=== PATIENT | female | born 1980 | race Caucasian/White ===

== ENCOUNTER 2022-12-08 08:39 | Outpatient (CLI) | payer SELFPAY ==
[2022-12-08 12:55] LABS: Cholesterol* 211 mg/dL (90-199); Glucose* 113 mg/dL (60-115); HDL Cholesterol* 49 mg/dL (>=50); LDL Cholesterol Calculated 140 mg/dL (<100); Triglycerides* 110 mg/dL (40-149)
== END 2022-12-08 08:40 | disposition home or self-care (01) ==
LOC: NFLDREF 08:39
PROVIDERS: PCP Family Medicine; Visit Provider Family Medicine
DX: Z00.00 Encounter for general adult medical examination without abnormal findings (principal); Z13.1 Encounter for screening for diabetes mellitus; Z13.6 Encounter for screening for cardiovascular disorders
CPT/HCPCS: 80061; 82947

== ENCOUNTER 2023-12-20 09:02 | Outpatient (CLI) | payer OTHER, SELFPAY ==
--- OUTSIDE RECORDS SUMMARY | 2023-12-20 09:06 | XMS_ITS | Clinical Summary ---
Author Name Unknown Organization [facility] Address [address] [address] Phone Care Team Providers Care Box Hinge And Lock Attacher Name Role Phone Unavailable Primary Care Provider Unavailabl e Medications Medication Sig Dispensed Refills Start Date End Date Status Adderall XR 20 MG 24 hour capsule 0 10/20/2021 Active escitalopram (Lexapro) 20 MG tablet 0 09/22/2021 Active HYDROcodone-acetam inophen ([place]) 5-325 MG oral tablet Take 1 Tablet by mouth every six hours as needed for Pain . Limit acetaminophen to 4000 mg per day from all sources. 12 Tablet 0 10/25/2021 Active Active Problems No known active problems Social History Tobacco Use Types Packs/Day Years Used Date Smoking Tobacco: Never Smokeless Tobacco: Never Sex and Gender Information Value Date Recorded Sex Assigned at Not on file Gender Identity Not on file Sexual Orientation Not on file Job Start Date Occupation Industry Not on file Not on file Not on file Obstetrics History Last Filed Vital Signs Vital Sign Reading Time Taken Comments Blood Pressure 148/93 10/25/2021 3:05 PM ELECTRICAL SYSTEMS DRAFTER Pulse 87 10/25/2021 3:03 PM ELECTRICAL SYSTEMS DRAFTER Temperature 36.9 ??C (98.4 ??F) 10/25/2021 3:03 PM CS T Respiratory Rate 14 10/25/2021 3:03 PM ELECTRICAL SYSTEMS DRAFTER Oxygen Saturation 100% 10/25/2021 3:03 PM ELECTRICAL SYSTEMS DRAFTER Inhaled Oxygen Concentration - - Weight - - Height - - Body Mass Index - - Plan of Treatment Health Maintenance Due Date Last Done Comments Cervical Cancer Screening 1980 Hepatitis B Vaccine (Standin g Order) (1 of 3 - 3-dose series) 1979 Last pap w/ HPV Testing 1979 Last pap w/o HPV Testing 1979 MAMMO,SCREEN 1979 COVID-19 Vaccine (#1) 04/17/1980 PERTUSSIS (Standing Order) 1998 TETANUS (Standing Order) 1998 Influenza Vaccine Seasonal (Standing Order) (#1) 2023 HPV Vaccine (Standing Order) Aged Out No longer eligible based on patient's age to complete this topic Pneumococcal/PCV20 Vaccine: Pediatrics (2-5 yrs) and At-Risk Patients (6-64 yrs) (Standing Order) Aged Out No longer eligible b ased on patient's age to complete this topic
== END 2023-12-20 09:03 | disposition home or self-care (01) ==
PROVIDERS: PCP Family Medicine; Visit Provider Family Medicine
DX: Z13.220 Encounter for screening for lipoid disorders (principal); Z13.1 Encounter for screening for diabetes mellitus
CPT/HCPCS: 80061; 82947

== ENCOUNTER 2024-02-28 13:00 | Outpatient (CLI) | payer OTHER, SELFPAY ==
--- NOTE | 2024-02-28 13:00 | MM_ITS ---
Patient: TEODORO QUIGLEY Facility:?[facility] R[facility] Patient ID:?[id number] Site Patient ID:?[id number]. Site :?1980 Study:?XRay-Breast Bilateral 3D screening mammogram w/cad-02/28/2024 1:34:22 PM Ordering Physician:Margarita Final Report: BILATERAL DIGITAL SCREENING MAMMOGRAM WITH TOMOSYNTHESIS AND COMPUTER-AIDED DETECTION CLINICAL HISTORY: Routine screening exam. COMPARISON: 09/02/2020. TECHNIQUE: Digital mammogram in CC and MLO projections including computer-aided detection (CAD). Tomosynthesis utilized. BREAST COMPOSITION: The breasts are heterogeneously dense, which may obscure small masses. FINDINGS: RIGHT Breast: No suspicious findings. LEFT Breast: Focal nodular density within the lower outer quadrant 6 cm from the nipple. IMPRESSION: LEFT breast asymmetry/mass. RECOMMENDATIONS: Additional mammographic views of the LEFT breast including 3D spot compression CC/MLO. LEFT breast ultrasound may also be required. BI-RADS Category 0: Incomplete: Need Additional Imaging Evaluation and/or Prior Mammograms for Comparison [facility] will contact the patient for follow-up. A lay language report of this examination will be provided to the patient. Dictated by Emerson Jacobs MD @ 02/29/2024 11:06:25 AM jj/Dictated by: Emerson Jacobs MD @ 02/29/2024 11:06:00 AM Signed by:?Emerson Jacobs MD @02/29/2024 12:07:10 PM (Electronic Signature)
--- OUTSIDE RECORDS SUMMARY | 2024-02-28 13:03 | XMS_ITS | Clinical Summary ---
Author Name Unknown Organization [facility] Address [address] [address] Phone Care Team Providers Care Lumber Mover Name Role Phone Unavailable Primary Care Provider Unavailabl e Medications Medication Sig Dispensed Refills Start Date End Date Status Adderall XR 20 MG 24 hour capsule 10/20/2021 Active escitalopram (Lexapro) 20 MG tablet 09/22/2021 Active HYDROcodone-acetam inophen ([place]) 5-325 MG oral tablet Take 1 Tablet by mouth every six hours as needed for Pain . Limit acetaminophen to 4000 mg per day from all sources. 12 Tablet 10/25/2021 Active Active Problems No known active [...] Comments Blood Pressure 148/93 10/25/2021 3:05 PM RATE AND COST ANALYST Pulse 87 10/25/2021 3:03 PM RATE AND COST ANALYST Temperature 36.9 ??C (98.4 ??F) 10/25/2021 3:03 PM CS T Respiratory Rate 14 10/25/2021 3:03 PM RATE AND COST ANALYST Oxygen Saturation 100% 10/25/2021 3:03 PM RATE AND COST ANALYST Inhaled Oxygen Concentration - - Weight - - Height - - Body Mass Index - - Plan of Treatment Health Maintenance Due Date Last Done Comments Cervical Cancer Screening 1979 Last pap w/ HPV Testing 1979 Last pap w/o HPV Testing 1979 MAMMO,SCREEN 1979 Hepatitis B Vaccine (Standin g Order) (1 of 3 - 19+ 3-dose series) 1998 PERTUSSIS (Standing Order) 1998 TETANUS (Standing Order) 1998 COVID-19 Vaccine (2022-2 4 season) 2023 Influenza Vaccine Seasonal (Standing Order) (#1) 2023 HPV Vaccine (Standing Order) Aged Out No longer eligible based on patient's age to complete this topic Pneumococcal/PCV20 Vaccine: Pediatrics (2-5 yrs) and At-Risk Patients (6-64 yrs) (Standing Order) Aged Out No longer eligible b ased on patient's age to complete this topic
== END 2024-02-28 13:01 | disposition home or self-care (01) ==
LOC: MAMMO 13:00
PROVIDERS: PCP Family Medicine; Visit Provider Family Medicine
DX: Z12.31 Encounter for screening mammogram for malignant neoplasm of breast (principal); N63.20 Unspecified lump in the left breast, unspecified quadrant; R92.2 Inconclusive mammogram
CPT/HCPCS: 77063; 77067

== ENCOUNTER 2024-03-14 08:35 | Outpatient (CLI) | payer OTHER, SELFPAY ==
--- OUTSIDE RECORDS SUMMARY | 2024-03-14 08:40 | XMS_ITS | Clinical Summary ---
Author Name Unknown Organization [facility] Address [address] [address] Phone Care Team Providers Care Computer Forensics Investigator Name Role Phone Unavailable Primary Care Provider Unavailabl e Medications Medication Sig Dispensed Refills Start Date End Date Status Adderall XR 20 MG 24 hour capsule 10/20/2021 Active escitalopram (Lexapro) 20 MG tablet 09/22/2021 Active HYDROcodone-acetam inophen ([place]) 5-325 MG oral tablet Take 1 Tablet [...] Comments Blood Pressure 148/93 10/25/2021 3:05 PM CONVEYOR MONITOR Pulse 87 10/25/2021 3:03 PM CONVEYOR MONITOR Temperature 36.9 ??C (98.4 ??F) 10/25/2021 3:03 PM CS T Respiratory Rate 14 10/25/2021 3:03 PM CONVEYOR MONITOR Oxygen Saturation 100% 10/25/2021 3:03 PM CONVEYOR MONITOR Inhaled Oxygen Concentration - - Weight - [...]
--- NOTE | 2024-03-14 08:45 | MM_ITS ---
Patient: TEODORO QUIGLEY Facility:?[facility] Patient ID:?[id number] Site Patient ID:?[id number] Site :?1980 Study:?XRay-Breast Left 3D W/CAD-03/14/2024 9:20:53 AM Ordering Physician:?Moe Cyr Final Report: DIGITAL DIAGNOSTIC LEFT MAMMOGRAM USING TOMOSYNTHESIS AND COMPUTER-AIDED DETECTION LEFT BREAST ULTRASOUND CLINICAL HISTORY: LEFT breast mass/asymmetry. COMPARISON: 02/28/2024. TECHNIQUE: Digital LEFT mammogram in two projections. Tomosynthesis and CAD utilized. Real-time ultrasound imaging of LEFT breast with imaging documentation. BREAST COMPOSITION: There are areas of scattered fibroglandular density. FINDINGS: 3D spot compression CC/MLO LEFT breast mammogram images submitted. Persistent nodular density is present without architectural distortion. No suspicious calcifications. Targeted LEFT breast ultrasound performed. At 4 o`clock 5 cm from the nipple there is a circumscribed solid hypoechoic nodule measuring 11 x 5 x 8 millimeters at mid depth. IMPRESSION: Indeterminate solid nodule LEFT breast 4 o`clock 5 cm from the nipple measuring 11 x 5 x 8 millimeters. RECOMMENDATIONS: Ultrasound-guided core needle biopsy. Results and recommendations discussed with the patient. BI-RADS Category 4: Suspicious A lay language report of this examination will be provided to the patient. Dictated by Emerson Jacobs MD @ 03/14/2024 11:05:11 AM jj/Dictated by: Emerson Jacobs MD @ 03/14/2024 11:05:00 AM Signed by:?Emerson Jacobs MD @03/14/2024 11:57:39 AM (Electronic Signature)
--- NOTE | 2024-03-14 09:15 | US_ITS ---
Patient: TEODORO QUIGLEY Facility:?[facility] RIS Patient ID:?[id number] Site Patient ID:?[id number] Site :?1980 Study:?US-Breast Left DR LI TO READ-03/14/2024 9:24:29 AM Ordering Physician:?DEBBIE DARDEN Final Report: PLEASE SEE DIGITAL DIAGNOSTIC LEFT MAMMOGRAM PERFORMED SAME DAY CRL:rodney stevens/Dictated by: Emerson Li MD @ 03/14/2024 11:05:00 AM Signed by:?Emerson Li MD @03/14/2024 11:57:40 AM (Electronic Signature)
--- NOTE | 2024-03-14 11:15 | US_ITS ---
Patient: TEODORO QUIGLEY Facility:?[facility] Patient ID:?[id number] Site Patient ID:?[id number] Site :?1980 Study:?US-Breast Procedure DR LI TO READ-03/14/2024 11:35:57 AM Ordering Physician:?DEBBIE DARDEN Final Report: ULTRASOUND-GUIDED LEFT BREAST BIOPSY AND POST-BIOPSY DIGITAL MAMMOGRAM FOR BIOPSY MARKER PLACEMENT CLINICAL HISTORY: Indeterminate nodule. COMPARISON STUDIES: 03/14/24, 02/28/2024 TECHNIQUE: Real-time ultrasound with image documentation was used for targeting the LEFT breast lesion. Core biopsy specimens were obtained using an automated gun with an 18-gauge biopsy needle. Post-biopsy CC and ML digital mammograms were obtained to document position of the biopsy marker. CONSENT and TIME OUT: The procedure, risks, and alternatives were explained to the patient and a consent was signed. [place] Protocol was followed including pre-procedure verification that relevant information/documentation was available, reviewed and properly matched to the patient; consent accurate and complete; and equipment and supplies available. Time Out was conducted just prior to starting procedure to verify the four required elements: patient identity, correct side/site marked (if applicable), procedure, relevant images/results properly labeled and displayed (if applicable). PROCEDURE: The patient was positioned supine on the ultrasound table. The breast was prepped with ChloraPrep. 8 cc of 1% lidocaine used for local anesthesia. Core samples were obtained. A sterile metal biopsy clip was placed percutaneously to simi the lesion position within the breast. The specimens were placed in 10% formalin and sent to the pathology department. Pressure was held on the biopsy site until all bleeding subsided. The skin incision was closed with Steri- Strips. An ice pack was positioned over the biopsy site. Post-biopsy instructions were reviewed with the patient, and a written copy was given to her. LATERALITY: LEFT breast. LESION: Solid circumscribed hypoechoic nodule measuring 11 x 5 x 8 mm at 4 o`clock, 5 cm from the nipple. SUSPICION FOR MALIGNANCY: Intermediate, probable fibroadenoma. NUMBER OF SAMPLES: 5 BIOPSY CLIP SHAPE: Oval-shaped PROXIMITY OF CLIP TO TARGET: Within target IMPRESSION: Ultrasound-guided LEFT breast biopsy. When the pathology report is available, an addendum to this report will be made. ACR not applicable Dictated by Emerson Li MD @ 03/14/2024 11:50:41 AM DIGNA:princess RD/Dictated by: Emerson Li MD @ 03/14/2024 11:50:00 AM --ADDENDUM-- ADDENDUM: Pathology consistent with benign fibroadenoma. No evidence of atypia or malignancy. This is concordant. Resume annual BILATERAL screening mammography. Dictated by: Emerson Li MD @03/16/2024 2:50:53 PM / Nelia Signed by:?Emerson Li MD @03/14/2024 12:32:23 PM (Electronic Signature)
--- NOTE | 2024-03-14 12:00 | MM_ITS ---
Patient: TEODORO QUIGLEY Facility:?[facility] RIS Patient ID:?[id number] Site Patient ID:?[id number] Site :?1980 Study:?XRay-Breast Left 2D W/CAD-03/14/2024 11:52:13 AM Ordering Physician:?Moe Cyr Final Report: PLEASE SEE LEFT BREAST ULTRASOUND-GUIDED BIOPSY OF SAME DAY. CRL:princess RD/Dictated by: Emerson Jacobs MD @ 03/14/2024 11:57:00 AM Signed by:?Emerson Jacobs MD @03/14/2024 12:32:17 PM (Electronic Signature)
== END 2024-03-14 08:36 | disposition home or self-care (01) ==
LOC: MAMMO 08:36
PROVIDERS: PCP Family Medicine; Visit Provider Family Medicine
DX: N63.20 Unspecified lump in the left breast, unspecified quadrant (principal); D24.2 Benign neoplasm of left breast; R92.8 Other abnormal and inconclusive findings on diagnostic imaging of breast
CPT/HCPCS: 19083; 76642; 77065; 88305; A4648; A4649; G0279

== ENCOUNTER 2024-03-14 09:34 | Outpatient (CLI) | payer OTHER, SELFPAY ==
--- OUTSIDE RECORDS SUMMARY | 2024-03-19 05:23 | XMS_ITS | Clinical Summary ---
Author Name Unknown Organization [facility] [email or web address] [facility] Address [address] [address] Phone Care Team Providers Care Slip Cover Seamstress Name Role Phone Unavailable Primary Care Provider Unavailabl e Medications Medication Sig Dispensed Refills Start Date End Date Status Adderall XR 20 MG 24 hour capsule 10/20/2021 Active escitalopram (Lexapro) 20 MG tablet 09/22/2021 Active HYDROcodone-acetam inophen ([place]) 5-325 MG oral tablet Take 1 Tablet [...] Comments Blood Pressure 148/93 10/25/2021 3:05 PM MARKETING TRAFFIC COORDINATOR Pulse 87 10/25/2021 3:03 PM MARKETING TRAFFIC COORDINATOR Temperature 36.9 ??C (98.4 ??F) 10/25/2021 3:03 PM CS T Respiratory Rate 14 10/25/2021 3:03 PM MARKETING TRAFFIC COORDINATOR Oxygen Saturation 100% 10/25/2021 3:03 PM MARKETING TRAFFIC COORDINATOR Inhaled Oxygen Concentration - - Weight - [...]
== END 2024-03-14 09:35 | disposition home or self-care (01) ==
LOC: NFLDREF 03-19 05:21
PROVIDERS: PCP Family Medicine; Referring Provider Family Medicine; Visit Provider Family Medicine
DX: M25.561 Pain in right knee (principal); M25.562 Pain in left knee; Z82.61 Family history of arthritis
CPT/HCPCS: 86200; 86431

== ENCOUNTER 2024-04-02 12:54 | Outpatient (CLI) | payer OTHER, SELFPAY ==
--- NOTE | 2024-04-02 13:00 | MR_ITS ---
Patient: TEODORO QUIGLEY Facility:?[facility] RIS Patient ID:?[id number] Site Patient ID:?[id number]. Site :?1980 Study:?MRI-Breast WO SILICONE IMPLANT PROTOCOL-04/02/2024 2:53:07 PM Ordering Physician:CHARIS Final Report: BILATERAL BREAST MRI WITHOUT GADOLINIUM, 04/02/2024 CLINICAL HISTORY: Evaluate for breast silicone implant rupture. The order indicates LEFT breast pain. COMPARISON: Screening mammogram 02/28/2024 diagnostic LEFT mammogram and ultrasound 03/14/2024. CONTRAST: None. TECHNIQUE: The patient was positioned prone and scanned using a breast coil. Several imaging sequences of both breasts were obtained using 1-1.5 mm thick slices with no gap including T2-weighted and silicone selective sequences in axial and sagittal planes. BILATERAL BREAST MRI FINDINGS: There are BILATERAL retropectoral silicone implants. There is intracapsular rupture of both implants. No extracapsular silicone extravasation. Susceptibility artifact in the lower outer LEFT breast at the site of recent benign biopsy. No abnormal morphology lymph nodes. IMPRESSIONS AND RECOMMENDATIONS: 1. Intracapsular rupture of the BILATERAL silicone implants. No extracapsular silicone extravasation. Clinical follow-up is recommended. 2. The MRI order indicates LEFT breast pain. If pain is focal then a targeted LEFT breast ultrasound should be performed for further evaluation of these symptoms. 3. Annual screening mammograms. Note: This study is designed to evaluate for implant rupture and is not a breast cancer screening study. BI-RADS: N/A Dictated by Risa Kearns MD @ 04/03/2024 8:18:06 AM/CRL:luc JERNIGAN/Dictated by: Risa Kearns MD @ 04/03/2024 8:18:00 AM Signed by:?Risa Kearns MD @04/03/2024 3:42:54 PM (Electronic Signature)
--- OUTSIDE RECORDS SUMMARY | 2024-04-02 13:08 | XMS_ITS | Clinical Summary ---
Author Name Unknown Organization [facility] Address [address] [address] Phone Care Team Providers Care Digital Account Director Name Role Phone Unavailable Primary Care Provider Unavailabl e Medications Medication Sig Dispensed Refills Start Date End Date Status Adderall XR 20 MG 24 hour capsule 10/20/2021 Active escitalopram (Lexapro) 20 MG tablet 09/22/2021 Active HYDROcodone-acetam inophen ([place]) 5-325 MG oral tablet Take 1 Tablet [...] Comments Blood Pressure 148/93 10/25/2021 3:05 PM MAGAZINE EDITOR Pulse 87 10/25/2021 3:03 PM MAGAZINE EDITOR Temperature 36.9 ??C (98.4 ??F) 10/25/2021 3:03 PM CS T Respiratory Rate 14 10/25/2021 3:03 PM MAGAZINE EDITOR Oxygen Saturation 100% 10/25/2021 3:03 PM MAGAZINE EDITOR Inhaled Oxygen Concentration - - Weight - [...]
== END 2024-04-02 12:55 | disposition home or self-care (01) ==
LOC: MRI 12:54
PROVIDERS: PCP Family Medicine; Visit Provider Surgery
DX: N64.4 Mastodynia (principal); T85.49XA Other mechanical complication of breast prosthesis and implant, initial encounter; D24.2 Benign neoplasm of left breast; Z98.82 Breast implant status
CPT/HCPCS: 77047

== ENCOUNTER 2025-11-05 19:02 | Emergency (ER) | payer OTHER, SELFPAY ==
--- OUTSIDE RECORDS SUMMARY | 2025-11-03 11:10 | XMS_ITS | Encounter Summary ---
Author Organization [facility] Address [address] [address] Phone Care Team Providers Care Secretary Book Keeper Name Role Phone Unavailable Primary Care Provider Unavailabl e Reason for Visit * ReasonCommentsCold SymptomsLast night began having fever, chills, body aches, sore throat, headache, nausea. Interested in tamiflu and zofran. Reports temp 104 at home took tylenol. Encounter Details DateTypeDepartmentCare Team (Latest Contact Info)Hhoydpamvfm40/21/2025 11:[address] [facility] [address] [place], [place] [address] Mandy Loya APRN, DOUBLE END TENONER OPERATOR [address] [place], [place] [address] Influenza-like illness (Primary Dx); Sore throat; Fever, unspecified fever cause; Nausea Social History Tobacco UseTypesPacks/DayYears UsedDateSmoking Tobacco: NeverSmokeless Tobacco: NeverPHQ-2AnswerDate RecordedPHQ-2 Triao22801/04/2025CommentsUnknownSex and Gender InformationValueDate RecordedSex Assigned at BirthNot on fileLegal WexAwupqx92/12/2021 1:31 PM CSTGender IdentityNot on fileSexual OrientationNot on filedocumented as of this encounter Last Filed Vital Signs Vital SignReadingTime TakenCommentsBlood Hpapujmr485/8911/03/2025 12:13 PM VENETIAN BLIND ASSEMBLER Haaop65709/21/2025 12:13 PM SFVSflfxyqylew01.9 ??C (98.5 ??F)11/03/2025 12:13 PM CSTRespiratory Avhx450801/04/2025 12:13 PM CSTOxygen Rjpyhrfitr425%11/03/2025 12:13 PM CSTInhaled Oxygen Concentration--Mccqbq22.3 kg (137 lb 5.6 oz) 11/03/2025 12:13 PM CSTHeight--Body Mass Index--documented in this encounter Ordered Prescriptions PrescriptionSigDispense QuantityRefillsLast FilledStart DateEnd Date ondansetron (Zofran ODT) 4 MG disintegrating tablet Indications:NauseaTake 1 Tablet by mouth every eight hours as needed for Nausea. 12 Tablet 11/03/2025documented in this encounter Progress Notes * Mandy Loya, FILM PAINTER, DOUBLE END TENONER OPERATOR - 11/03/2025 11:[address] [facility] Subjective Chief Complaint Patient presents with Cold Symptoms Last night began having fever, chills, body aches, sore throat, headache, nausea. Interested in tamiflu and zofran. Reports temp 104 at home took tylenol. Charlene Beal is a 45 year old female who presents with her significant other to the urgentcare for evaluation of an influenza type illness that started yesterday and has progressively worsened. Associated symptoms include a Tmax of 104-105 this morning, chills, body aches, sore throat (isable to swallow), headache, nausea, decreased appetite. She denies vomiting, cough, sore throat. She is drinking plenty of water. She states no one in her home is ill. She thinks that she has influenza and if she does she would like to be treated with Tamiflu. She is also requesting a prescription for Zofran for nausea which she has taken in the past and has been helpful for her. She has also taken Tylenol for her fever with good results. Objective Vitals: 11/03/25 1213 BP: 138/89 BP Location: Right arm BP Patient Position: Sitting Cuff Size: Adult Regular Pulse: 125 Resp: 16 Temp: 36.9 ??C (98.5 ??F) TempSrc: Oral SpO2: 100% Weight: 137 lb 5.6 oz (62.3 kg) There is no height or weight on file to calculate BMI. General: Patient is alert and in no acute distress, appears ill but nontoxic Skin: Color is pink, skin is warm and dry, there are no rashes or lesions noted Head: Normocephalic and there is no sinus tenderness in the frontal sinuses, there is mild maxillary sinus tenderness bilaterally to light palpation Eyes: No conjunctival injection or drainage Nose: No erythema or rhinorrhea Mouth: Mucous membranes are pink and moist and there is very mild pharyngeal erythema, no exudate, no masses Neck: Supple and there is no pre or postauricular lymphadenopathy, there is mild tender anterior cervical lymphadenopathy Heart: Regular rate and rhythm without murmur Lungs: Clear to auscultation bilaterally, no cough, no increased workload of breathing No results found for this or any previous visit (from the past 24 hours). No results found. ASSESSMENT: (J11.1) Influenza-like illness (primary encounter diagnosis) (J02.9) Sore throat (R50.9) Fever, unspecified fever cause (R11.0) Nausea PLAN: Strep test is pending and will call patient with results and treat accordingly COVID and influenza test is pending, will call patient and treat accordingly We did discuss both Paxlovid and Tamiflu including side effects, method of action, and effectiveness of the medication, advised to take the medications with food Push fluids Continue to alternate Tylenol and ibuprofen for fever, body aches A dose of Zofran 4 mg ODT was given in the clinic prior to patient discharge for nausea and a prescription for Zofran 4 mg ODT was given for home use, can take 1 tablet every 8 hours as needed for nausea Follow-up with primary care provider if no improvement in 7 days or sooner if worsening TIAN BLIND ASSEMBLER documented in this encounter Plan of Treatment Not on file documented as of this encounter Procedures Procedure NamePriorityDate/TimeAssociated RxqobcjhgRggccdhlAGSJ-UHR-6/INFLUENZA A&B MOLECULAR YIECTEOKZQUJP10/21/2025 12:19 PM VENETIAN BLIND ASSEMBLER Fever, unspecified fever cause STREP A, MOLECULAR GKDLGGAIPIiajmic36/21/2025 12:19 PM VENETIAN BLIND ASSEMBLER Sore throat documented in this encounter Results * STREP A, MOLECULAR DETECTION (11/03/2025 12:19 PM VENETIAN BLIND ASSEMBLER)ComponentValueRef Range Test MethodAnalysis TimePerformed AtPathologist SignatureStreptococcus pyogenes (Group A Strep)Not DetectedNot Sbcrdajq35/21/2025 12:58 PM [facility]ST[facility] LABORATORYSpecimen (Source)Anatomical Location / LateralityCollection Method / VolumeCollection TimeReceived TimeSwabSTRUCTURE OF THROAT / UnknownNon-blood collection / Iekgvor9911/03/2025 12:19 PM VENETIAN BLIND ASSEMBLER 11/03/2025 12:25 PM VENETIAN BLIND ASSEMBLER Narrative [facility] - 11/03/2025 12:58 PM VENETIAN BLIND ASSEMBLER Test results must be interpreted within the context of all relevant clinical and laboratory findings. Method Information This test uses the [employer] [place] Xpert Xpress Strep A assay to detect Streptococcus pyogenes (Group A Beta-Hemolytic Streptococcus) DNA by real-time polymerase chain reaction (PCR) on the [employer] GeneXpertLoudClicktrument System. Authorizing ProviderResult TypeResult StatusChristine A Vincenzo PICKARD, CNPEC MICROBIOLOGY - GENERAL ORDERABLESFinal ResultPerforming OrganizationAddress City/State/ZIP CodePhone Number [facility] [address] * SARS-COV-2/INFLUENZA A AND B MOLECULAR DETECTION (11/03/2025 12:19 PM VENETIAN BLIND ASSEMBLER) ComponentValueRef RangeTest MethodAnalysis TimePerformed AtPathologist SignatureInfluenza RZmszwjpfGytgsbxe88/21/2025 1:07 PM CSTPRO[facility] [place] LABORATORYInfluenza FKsrhxlmqOumricwu53/21/2025 1:07 PM CST[facility] [place] EMRKYMBOJDXCRC-NaJ-2 RNA (COVID-19)Negative Negative/Not Lmcpuksp94/21/2025 1:07 PM CSTEH [facility] LABORATORYSpecimen (Source)Anatomical Location / LateralityCollection Method / VolumeCollection TimeReceived TimeSwabNASAL / UnknownNon-blood collection / Nzjpvcs9911/03/2025 12:19 PM CST11/03/2025 12:25 PM VENETIAN BLIND ASSEMBLER Narrative [facility] - 11/03/2025 1:07 PM VENETIAN BLIND ASSEMBLER Test results should be used in combination with clinical observations, patient history and epidemiological information. Method Information This test uses the [employer] [place] Xpert Xpress CoV-2/Flu/RSV plus assay to detect and differentiate RNA targets from SARS-CoV-2, influenza A, and/or influenza B, by real-time polymerase chain reaction (PCR)on the [employer] [place] GeneXpert Instrument System. It has received Emergency Use Authorization (EUA) by the U.S. Food and Drug Administration; performance characteristics have been verified by [facility] [employer] in a manner consistent with CLIA requirements. Authorizing ProviderResult TypeResult StatusChristine Marya Loya APRN, CNPEC MICROBIOLOGY - GENERAL ORDERABLESFinal ResultPerforming OrganizationAddress City/State/ZIP CodePhone Number [facility] [address] [place] [address], [facility] documented in this encounter Visit Diagnoses Diagnosis Influenza-like illness- Primary Influenza with other respiratory manifestations Sore throat Acute pharyngitis Fever, unspecified fever cause Nausea Nausea alone documented in this encounter Administered Medications Medication OrderMAR ActionAction DateDoseRateSite ondansetron (Zofran ODT) disintegrating tablet 4 mg 4 mg, Oral, ONCE, 1 dose, On 11/03/25 at 1300 Indications:VsnkccGpxde76/21/2025 12:37 PM CST4 mgdocumented in this encounter Discontinued Medications MedicationSigDiscontinue ReasonStart DateEnd Date HYDROcodone-acetaminophen (Horatio) 5-325 MG oral tablet Take 1 Tablet by mouth every six hours as needed for Pain . Limit acetaminophen to 4000 mg per day from all sources.Course of treatment fxxxrintc25/12/2021 11/03/2025documented as of this encounter Additional Health Concerns InfectionOnset DateLast IndicatedResolved TimeR/O Zqxunalpx1511/03/2025 1:07 PM CSTR/O COVID-191 1:07 PM VENETIAN BLIND ASSEMBLER documented as of this encounter
[2025-11-05] VITALS (12 sets, daily range): BP systolic 98; BP diastolic 56; PULSE 106–128; RESP 20; TEMP 36.7; O2SAT 89–100; BMI 23.5
--- OUTSIDE RECORDS SUMMARY | 2025-11-05 11:04 | XMS_ITS ---
Author Organization [facility] Allergies Not Yet Asked Medications No Information Problems Problem Status Assessment and P wilfred Asthma Inactive History of Procedures Order Codes Created Status No known procedures Results Tests Date Results Flag Units Reference Interval No Results Within Months MENTAL STATUS No information Family History No Known Family History Social History Social History Observation Description Dates Observed Smoking Status Former smoker June 21, 2025 Social Data No Known Social Data Immunizations Vaccine Date Status Unknown immunization status 11/05/2025 Comp leted Plan of Treatment Health Screenings Date Goal Action Comments June 21, 2025 Cervical cancer screening June 21, 2025 Colon cancer screening Fecal immunoche mical test (FIT) June 21, 2025 Breast cancer screening Digital breast tomosynthesis June 21, 2025 Depression screening PHQ-2
--- OUTSIDE RECORDS SUMMARY | 2025-11-05 19:04 | XMS_ITS | Encounter Summary ---
Author Organization [facility] Address [address] [address] Phone Care Team Providers Care Rehabilitation Aide Name Role Phone Unavailable Primary Care Provider Unavailabl e Encounter Details DateTypeDepartmentCare Team (Latest Contact Info)Taiaugyindk83/21/2025Results Follow-Up [facility] [address] [place] [address] Mandy Loya APRN, CORPORATE WEBMASTER [address] [place] [address] SARS-COV-2/INFLUENZA A AND B MOLECULAR DETECTION, STREP A, MOLECULAR DETECTION Social History Tobacco UseTypesPacks/DayYears UsedDateSmoking Tobacco: NeverSmokeless Tobacco: NeverPHQ-2AnswerDate RecordedPHQ-2 Wjwku81101/04/2025CommentsUnknownSex and Gender InformationValueDate RecordedSex Assigned at BirthNot on fileLegal ZgqUsxdel63/12/2021 1:31 PM CSTGender IdentityNot on fileSexual OrientationNot on filedocumented as of this encounter Miscellaneous Notes * Telephone Encounter - Velma Rodriges RN - 11/03/2025 4:04 PM CST Tried to return patient call, left voicemail to call back. ----- Message from Liliana Allison sent at 11/03/2025 2:04 PM CHAR FILTER TANK TENDER HEAD ----- FILTER TANK TENDER HEAD FILTER TANK TENDER HEAD * Telephone Encounter - Liliana Allison - 11/03/2025 2:04 PM CST Copied from [facility] #[id number]. Topic: Access to Clinicians - Question >> Nov 03, 2025 2:03 PM Liliana wrote: Reason for call: Returning call to office. Was seen in earlier today. State patient is calling from: [place] Person Calling: Charlene Return Pharmacy: [facility] documented in this encounter Plan of Treatment Not on file documented as of this encounter Visit Diagnoses Not on filedocumented in this encounter Additional Health Concerns InfectionOnset DateLast IndicatedResolved TimeR/O Etcsudmbs3411/03/2025 1:07 PM CSTR/O COVID-191 1:07 PM CHAR FILTER TANK TENDER HEAD documented as of this encounter
--- OUTSIDE RECORDS SUMMARY | 2025-11-05 19:04 | XMS_ITS | Encounter Summary ---
Author Organization [facility] Address [address] [address] Phone Care Team Providers Care Fastener Technologist Name Role Phone Unavailable Primary Care Provider Unavailabl e Encounter Details DateTypeDepartmentCare Team (Latest Contact Info)Qdcymipaagq81/21/2025Travel Social History Tobacco UseTypesPacks/DayYears UsedDateSmoking Tobacco: NeverSmokeless Tobacco: NeverPHQ-2AnswerDate RecordedPHQ-2 Phdkt96401/04/2025CommentsUnknownSex and Gender InformationValueDate RecordedSex Assigned at BirthNot on fileLegal WenHpwlsc21/12/2021 1:31 PM CSTGender IdentityNot on fileSexual OrientationNot on filedocumented as of this encounter Plan of Treatment Not on file documented as of this encounter Visit Diagnoses Not on filedocumented in this encounter Additional Health Concerns InfectionOnset DateLast IndicatedResolved TimeR/O Vspfiddxw0011/03/2025 1:07 PM CSTR/O COVID-191 1:07 PM DRAFTER CONSTRUCTION documented as of this encounter
--- OUTSIDE RECORDS SUMMARY | 2025-11-05 19:04 | XMS_ITS | Clinical Summary ---
Author Organization [facility] Address [address] [address] Phone Care Team Providers Care Ingot Buggy Operator Name Role Phone Unavailable Primary Care Provider Unavailabl e Allergies No known active allergies Medications MedicationSigDispense QuantityRefillsLast FilledStart DateEnd DateStatus Adderall XR 20 MG 24 hour capsule 10/20/2021ctive escitalopram (Lexapro) 20 MG tablet 09/22/2021ctive ondansetron (Zofran ODT) 4 MG disintegrating tablet Indications:NauseaTake 1 Tablet by mouth every eight hours as needed for Nausea. 12 Tablet 5ActiveHospital, Clinic, or Other Facility Administered Medication Ordered DoseRouteFrequencyStart DateEnd DateStatus ondansetron (Zofran ODT) disintegrating tablet 4 mg Indications:Nausea4 bcMZPJGL46/21/04792301/04/2025Ended Active Problems No known active problems Encounters DateTypeDepartmentCare YnwaWzlkfrcuwxc82/21/2025 11:10 AM CSTOffice Visit [facility] [address] [place] [address] Mandy Loya APRN, CNP Influenza-like illness (Primary Dx); Sore throat; Fever, unspecified fever cause; Wclfms0311/03/2025Results Follow-Up [facility] [address] [place] [address] Mandy Loya APRN, CNP SARS-COV-2/INFLUENZA A AND B MOLECULAR DETECTION, STREP A, MOLECULAR DETECTION 11/03/2025Travelfrom Last 3 Months Social History Tobacco UseTypesPacks/DayYears UsedDateSmoking Tobacco: NeverSmokeless Tobacco: NeverPHQ-2AnswerDate RecordedPHQ-2 Zhhhl14301/04/2025CommentsUnknownSex and Gender InformationValueDate RecordedSex Assigned at BirthNot on fileLegal BqlGiniua44/12/2021 1:31 PM CSTGender IdentityNot on fileSexual OrientationNot on file Last Filed Vital Signs Vital SignReadingTime TakenCommentsBlood Zecddnaa277/8911/03/2025 12:13 PM SYSTEM SOFTWARE PROGRAMMER Tzewl18213/21/2025 12:13 PM PTUYyekcxgwpxk17.9 ??C (98.5 ??F)11/03/2025 12:13 PM CSTRespiratory Zgmy048901/04/2025 12:13 PM CSTOxygen Xzwjgijgas163%11/03/2025 12:13 PM CSTInhaled Oxygen Concentration--Wcijtw67.3 kg (137 lb 5.6 oz) 11/03/2025 12:13 PM CSTHeight--Body Mass Index-- Plan of Treatment Health MaintenanceDue DateLast DoneCommentsCT Pcmaypyfosex1979Cervical Cancer Qsnpdmtpx46/04/4022Mzwrytszl20/04/1181Akxoaevjrwu1979Colorectal Cancer Screening (consider Cologuard where access is limited)1979FIT/FOBT 1979Last pap w/ HPV Dlpweza58 1979Last pap w/o HPV Vhajbon94 1979 MAMMO,BJGGYN12 1979 1711Dkpmeuwhlgzbb1979Hepatitis B Vaccine (Standing Order) (1 of 3 - 19+ 3-dose series)1998PERTUSSIS (Standing Order) 1998TETANUS (Standing Order)1998COVID-19 Vaccine ( season)2025Influenza Vaccine Seasonal (Standing Order) (#1)2025HPV Vaccine (Standing Order) (No Doses Required)CompletedPneumococcal/PCV20 Vaccine: Pediatrics (2-5 yrs) and At-Risk Patients (6-49 yrs) (Standing Order)Aged OutNo longer eligible based on patient's age to complete this topic Procedures Procedure NamePriorityDate/TimeAssociated DiagnosisCommentsSTREP A, MOLECULAR IBWYMZDNOHdimfaf53/21/2025 12:19 PM SYSTEM SOFTWARE PROGRAMMER Sore throat SARS-COV-2/INFLUENZA A&B MOLECULAR SWFFYNUSQJMZN37/21/2025 12:19 PM SYSTEM SOFTWARE PROGRAMMER Fever, unspecified fever cause from Last 3 Months Results * SARS-COV-2/INFLUENZA A AND B MOLECULAR DETECTION (11/03/2025 12:19 PM SYSTEM SOFTWARE PROGRAMMER) ComponentValueRef RangeTest MethodAnalysis TimePerformed AtPathologist SignatureInfluenza BQghhgimeEuvfsdkq25/21/2025 1:07 PM [facility] LABORATORYInfluenza XAovjqccsNlhlwdnp64/21/2025 1:07 PM [facility] YUDHTSAZBEVFZQ-NsA-3 RNA (COVID-19)Negative Negative/Not Wsvmhzjy65/21/2025 1:07 PM [facility] LABORATORYSpecimen (Source)Anatomical Location / LateralityCollection Method / VolumeCollection TimeReceived TimeSwabNASAL / UnknownNon-blood collection / Duzqhiu3711/03/2025 12:19 PM CST11/03/2025 12:25 PM SYSTEM SOFTWARE PROGRAMMER Narrative [facility] - 11/03/2025 1:07 PM SYSTEM SOFTWARE PROGRAMMER Test results should be used in combination with clinical observations, patient history and epidemiological information. Method Information This test uses the [employer] Xpert Xpress CoV-2/Flu/RSV plus assay to detect and differentiate RNA targets from SARS-CoV-2, influenza A, and/or influenza B, by real-time polymerase chain reaction (PCR)on the [employer] GeneXpert Instrument System. It has received Emergency Use Authorization (EUA) by the U.S. Food and Drug Administration; performance characteristics have been verified by [facility] in a manner consistent with CLIA requirements. Authorizing ProviderResult TypeResult StatusChristine A Vincenzo PICKARD CNPEC MICROBIOLOGY - GENERAL ORDERABLESFinal ResultPerforming OrganizationAddress City/State/ZIP CodePhone Number [facility] [address] [place] [address], [facility] * STREP A, MOLECULAR DETECTION (11/03/2025 12:19 PM SYSTEM SOFTWARE PROGRAMMER)ComponentValueRef Range Test MethodAnalysis TimePerformed AtPathologist SignatureStreptococcus pyogenes (Group A Strep)Not DetectedNot Gjfejsis91/21/2025 12:58 PM CSTS[facility] LABORATORYSpecimen (Source)Anatomical Location / LateralityCollection Method / VolumeCollection TimeReceived TimeSwabSTRUCTURE OF THROAT / UnknownNon-blood collection / Bnouswp6811/03/2025 12:19 PM SYSTEM SOFTWARE PROGRAMMER 11/03/2025 12:25 PM SYSTEM SOFTWARE PROGRAMMER Narrative [facility] - 11/03/2025 12:58 PM SYSTEM SOFTWARE PROGRAMMER Test results must be interpreted within the context of all relevant clinical and laboratory findings. Method Information This test uses the [employer] Xpert Xpress Strep A assay to detect Streptococcus pyogenes (Group A Beta-Hemolytic Streptococcus) DNA by real-time polymerase chain reaction (PCR) on the [employer]ument System. Authorizing ProviderResult TypeResult StatusChristine A Vincenzo PICKARD CNPEC MICROBIOLOGY - GENERAL ORDERABLESFinal ResultPerforming OrganizationAddress City/State/ZIP CodePhone Number [facility] [address] from Last 3 Months Insurance
--- NOTE | 2025-11-05 19:48 | CT_ITS ---
Patient: TEODORO QUIGLEY Facility:?[facility] Patient ID:?[id number] Site Patient ID:?[id number]. Site :?[id number] Study:?CT-Abdomen/Pelvis W/IV-11/05/2025 8:23:59 PM Ordering Physician:Tapan Meier Final Report: INDICATION: Abdominal pain. Fever. Nausea.. TECHNIQUE: CT abdomen and pelvis acquired with 67 cc Isovue 370 IV contrast. COMPARISON: 06/23/2011. FINDINGS: Lower chest: Unremarkable. Liver: Unremarkable. Normal in size and attenuation. No suspicious masses. Gallbladder and bile ducts: Unremarkable. No stones or inflammation. No biliary dilatation. Pancreas: Unremarkable. No mass or inflammation. Spleen: Unremarkable. Normal in size. No masses. Adrenal glands: Unremarkable. No nodules. Kidneys: 1.4 centimeter calculus within the left renal pelvis. There is striated and patchy hypoenhancement throughout the left kidney with left perinephric inflammatory change. GI tract: Unremarkable. Normal in caliber. No sign of mass or inflammation. Normal appendix. Vasculature: Abdominal aorta is normal in caliber. Mesenteric arteries are patent. Lymph nodes: No lymphadenopathy. Peritoneum/Abdominal Wall: Unremarkable. No sign of mass or infiltration. No free air or significant free fluid. Pelvis: Urinary bladder is underdistended, limiting evaluation. Bones: Unremarkable for age. IMPRESSION: 1.4 centimeter calculus within the left renal pelvis with associated left pyelonephritis. No evidence of left perinephric fluid collection/abscess. Please note that all CT scans at this facility use dose modulation, iterative reconstruction, and/or weight-based dosing when appropriate to reduce radiation dose to as low as reasonably achievable. Dictated by Blu Donnelly MD @ 11/05/2025 8:37:34 PM (Electronic Signature)
--- NOTE | 2025-11-05 19:50 | ED_ITS ---
HPI - Fever General Chief Complaint: Fever Stated Complaint: Fever, body aches Time Seen by Provider: 11/05/25 19:34 History of Present Illness HPI Narrative: This 45-year-old female comes in reporting fever and generalized malaise for the past 3 days. She has had decreased appetite. She does not report much of a cough. She did go to urgent care a couple days ago and nasal pharyngeal swab was negative for viruses tested. She does report abdominal pain. Related Data Home Medications ?Medication ?Instructions ?Recorded ?Confirmed fluticasone propionate 50 1 spray intranasal QDAY PRN 02/03/23 08/21/25 mcg/actuation nasal spray,suspension (Allergy Relief (fluticasone)) loratadine 10 mg tablet 10 mg PO DAILY PRN 12/20/23 08/21/25 multivitamin (Daily Multi-Vitamin 1 tab PO QDAY 08/21/25 tablet) omega-3 fatty acids [Fish Oil] 1 cap PO .QD 12/20/23 1 Previous Rx's ?Medication ?Instructions ?Recorded albuterol sulfate 90 mcg/actuation 2 puff inhalation Q 4-6H PRN 12/09/22 aerosol inhaler shortness of breath or wheez ing #6.7 grams bupropion HCl 150 mg 24 hr tablet, 150 mg PO QAM #90 t abs 01/02/25 extended release escitalopram oxalate 20 mg tablet 20 mg PO DAILY #90 t abs 01/02/25 peg 3350-electrolytes 236 240 ml PO Q10M #4,000 mL 07/08 gram-22.74 gram-6.74 gram-5.86 gram solution (Golytely) prednisone 20 mg tablet 40 mg (2 x 20 mg) PO QDAY #1 0 tabs 08/21/25 dextroamphetamine-amphetamine ER 60 mg (2 x 30 mg) PO QAM #60 caps 10/29/25 30 mg 24hr capsule,extend release dextroamphetamine-amphetamine ER 60 mg (4 x 15 mg) PO QAM #120 caps 10/30/25 15 mg 24hr capsule,extend release Allergies Allergy/AdvReac Type Severity Reaction Status Date / Time Fork nut Allergy Unknown Unknown Verified 11/05/25 19:10 Cashew Nut Oil Allergy Unknown Unknown Uncoded 08/21/25 09:53 Review of Systems Status of ROS Reports: 10 or more systems reviewed and unremarkable except as noted in History and below Narrative Constitutional: No fevers, no weight gain or loss. Eyes: No discharge. No vision changes. HENT: No congestion, no sore throat, no ear pain. Cardiovascular: No chest pain, no palpitations. Respiratory: No shortness of breath, no wheezes, no cough. Gastrointestinal: No vomiting, no diarrhea. Diffuse abdominal pain that is worse with any kind of movement. Genitourinary: No dysuria, no hematuria. Musculoskeletal: Normal range of motion. Skin: No rashes, no pruritis. Neurological: No dizziness, weakness, sensory change, speech change. Endo/Heme/Allergies: No bruising or bleeding. No polydipsia. Pysch: no suicidality, no anxiety, no insomnia. All other systems reviewed and are negative. [facility] Medical History (Updated 11/05/25 @ 22:00 by Hardeep Daniels MD) Oligomenorrhea ?N91.5 - Oligomenorrhea, unspecified (ICD-10) Asthma ?J45.909 - Unspecified asthma, uncomplicated (ICD-10) Migraine (07/21/10) ?G43.909 - Migraine, unspecified, not intractable, without status migrainosus (ICD-10) Depression ?F32.A - Depression, unspecified (ICD-10) Attention deficit hyperactivity disorder (02/18/12) ?F90.9 - Attention-deficit hyperactivity disorder, unspecified type (ICD-10) Anxiety ?F41.9 - Anxiety disorder, unspecified (ICD-10) Acne (07/21/10) ?L70.9 - Acne, unspecified (ICD-10) History of seizures as a child (07/21/10) ?Z86.69 - Personal history of other diseases of the nervous system and sense organs (ICD-10) Fracture of distal phalanx of finger ?S62.639A - Displaced fracture of distal phalanx of unspecified finger, initial encounter for closed fracture (ICD-10) Surgical History (Updated 12/09/22 @ 09:14 by Moe Cyr MD) H/O LEEP ?Z98.890 - Other specified postprocedural states (ICD-10) Status post tubal ligation ?Z98.51 - Tubal ligation status (ICD-10) Status post delivery ?Z98.891 - History of uterine scar from previous surgery (ICD-10) History of breast augmentation (07/21/10) ?Z98.82 - Breast implant status (ICD-10) Family History (Updated 03/20/24 @ 10:37 by Hollie Lees MD) Maternal Grandmother Ovarian cancer Social History (Updated 08/21/25 @ 10:03 by Hollie Leavitt~[facility], [facility]) Narrative: Does not work outside the home, non-smoker, no alcohol use. Lifts weights regularly. What is your current living situation?: I presently have a place to live Problems where you live: no known problems In the past 12 months, utilities in danger of being shut off: no In past 12 months, lack of transportation kept you from medical appts, meetings, work, or getting things needed for daily living: no In the past 12 mos, have been you worried that your food would run out before you had money to buy more?: never true In the past 12 mos, the food you bought just didn't last and you didn't have money to buy more?: never true Smoking Status: Former smoker Do you use any of these nicotine containing products: None Second hand tobacco smoke exposure: No How often do you have a drink containing alcohol: never How often do you have six or more drinks on one occasion: Never AUDIT-C Alcohol total score: 0 Non-prescribed substance use: denies use How often does anyone, including family, friends and others, physically hurt you : never How often does anyone, including family, friends and others, insult or talk down to you: never How often does anyone, including family, friends and others, threaten you with harm: never How often does anyone, including family, friends and others, scream or curse at you: never service: No Exam Narrative Exam Narrative: Constitutional: Well-developed, well-nourished, no acute distress. HEENT: Normocephalic, atraumatic. Tympanic membranes appear normal bilaterally. Oropharynx also appears normal. Neck: Normal range of motion. Nontender. Supple. Heart: Regular. No murmurs. Normal rate. Intact distal pulses. Lungs: Clear to auscultation. No chest discomfort. No wheezes, rhonchi, or rales. Abdomen: Decreased bowel sounds. Diffuse tenderness. Rebound tenderness is present. Genitalia: Deferred. Back: No midline tenderness. Normal range of motion. Extremities: Normal range of motion. No injury. Skin: Intact. No rash. Warm. No erythema or pallor. Neurologic: No altered sensation. No weakness. Alert and oriented. Psychiatric: No suicidality. No anxiety or depression. No insomnia. Nursing notes and vitals signs are reviewed. Const Vital Signs, click to edit/add: Vital Signs - 24 hr 11/05/25 19:10 11/05/25 19:25 11/05/25 19:30 Temperature 98.0 F Pulse Rate 118 H 119 H Pulse Rate [Left Pulse Oximeter] 128 H Respiratory Rate 20 Blood Pressure [Right Upper Arm] 98/56 L Pulse Oximetry 100 100 100 Oxygen Delivery Method Room Air 11/05/25 19:50 11/05/25 20:00 11/05/25 20:36 Temperature Pulse Rate 119 H 118 H 110 H Pulse Rate [Left Pulse Oximeter] Respiratory Rate Blood Pressure [Right Upper Arm] Pulse Oximetry 99 98 100 Oxygen Delivery Method 11/05/25 20:51 11/05/25 21:00 11/05/25 21:15 Temperature Pulse Rate 106 H 106 H 109 H Pulse Rate [Left Pulse Oximeter] Respiratory Rate Blood Pressure [Right Upper Arm] Pulse Oximetry 100 100 98 Oxygen Delivery Method 11/05/25 21:30 11/05/25 21:47 Temperature Pulse Rate 108 H 115 H Pulse Rate [Left Pulse Oximeter] Respiratory Rate Blood Pressure [Right Upper Arm] Pulse Oximetry 98 89 Oxygen Delivery Method Course Vital Signs Vital signs: Initial Vital Signs Temperature 98.0 F 11/05/25 19:10 Temperature Source Temporal Artery Scan 11/05/25 19:10 Pulse Rate 128 H 11/05/25 19:10 Respiratory Rate 20 11/05/25 19:10 Blood Pressure 98/56 L 11/05/25 19:10 Blood Pressure Mean 70 11/05/25 19:10 Blood Pressure Position Sitting 11/05/25 19:10 Pulse Oximetry 100 11/05/25 19:10 Oxygen Delivery Method Room Air 11/05/25 19:10 Vital Signs Temperature 98.0 F 11/05/25 19:10 Pulse Rate 128 H 11/05/25 19:10 Respiratory Rate 20 11/05/25 19:10 Blood Pressure 98/56 L 11/05/25 19:10 Pulse Oximetry 100 11/05/25 19:10 Oxygen Delivery Method Room Air 11/05/25 19:10 Temperature 98.0 F 11/05/25 19:10 Pulse Rate 115 H 11/05/25 21:47 Respiratory Rate 20 11/05/25 19:10 Blood Pressure 98/56 L 11/05/25 19:10 Pulse Oximetry 89 11/05/25 21:47 Oxygen Delivery Method Room Air 11/05/25 19:10 Medications Administered Medications: Generic Name Dose Route Start Last Admin Trade Name Freq PRN Reason Stop Dose Admin Sodium Chloride 1,000 mls @ 1,000 mls/hr 11/05/25 21:15 11/05/25 21:28 0.9 % Sodium Chloride 1000 Ml IV 11/05/25 22:14 1,000 mls/hr .Q1H [place] Administration Discontinued Medications Generic Name Dose Route Start Last Admin Trade Name Freq PRN Reason Stop Dose Admin Hydromorphone HCl 0.5 mg 11/05/25 21:13 11/05/25 21:28 Hydromorphone 0.5 Mg/0.5 Ml Inj IVP 11/05/25 21:14 0.5 mg ONCE ONE Administration Sodium Chloride 1,000 mls @ 1,000 mls/hr 11/05/25 20:00 11/05/25 20:05 0.9 % Sodium Chloride 1000 Ml IV 11/05/25 20:59 1,000 mls/hr .Q1H [place] Administration Ceftriaxone Sodium 1 gm/ 100 mls @ 200 mls/hr 11/05/25 21:13 11/05/25 21:28 Sodium Chloride IVPB 11/05/25 21:42 200 mls/hr ONCE ONE Administration Ketorolac Tromethamine 30 mg 11/05/25 19:47 11/05/25 20:10 Ketorolac 30 Mg/Ml Inj IVP 11/05/25 19:48 30 mg ONCE ONE Administration Ondansetron HCl 4 mg 11/05/25 19:47 11/05/25 20:11 Ondansetron 2 Mg/Ml Inj IVP 11/05/25 19:48 4 mg ONCE ONE Administration MDM - Fever MDM Narrative Medical decision making narrative: This 45-year-old female comes in with generalized malaise and fever as described above. On exam she had very obvious rebound tenderness on her abdomen. An IV was established where she had labs drawn. She received a L of normal saline initially and a 2 L later on. She also received Toradol [address] images are obtained of the abdomen and pelvis and show evidence of left kidney infection. The pyelonephritis is associated with a large kidney stone measuring 14 mm. Lab results returned with an elevated white count at around 16,000. Her lactate is in normal range. Is notable that her creatinine is at 4.3 with elevated BUN. After blood cultures were obtained the patient did receive a g of Rocephin. She also received Dilaudid 0.5 mg. She is maintaining normal vital signs and is feeling significantly better with these treatments. I did speak with Dr. Cutler, hospitalist at [facility], who agrees to her transfer there for further evaluation and treatment. There may be up to an 8 hour wait for a bed to become available. Lab Data Labs: Lab Results 11/05/25 11/05/25 Range/Units 19:10 20:03 WBC 16.68 H (4.50-11.00) K/uL RBC 4.81 (4.00-5.20) m/uL Hgb 14.0 (12.0-16.0) gm/dL Hct 39.4 (33.0-51.0) % MCV 82 (80-100) fL MCH 29 (26-34) pg MCHC 36 (32-36) gm/dL RDW Coeff of Elsi 12.8 (11.5-15.5) % Plt Count 149 (140-440) K/uL Neut % (Auto) 94.6 H (42.0-72.0) % Lymph % (Auto) 1.9 L (20-44) % Stearns % (Auto) 2.8 (0.0-11.0) % Eos % (Auto) 0.1 (0.0-7.0) % Baso % (Auto) 0.1 (0.0-3.0) % Neut # (Auto) 15.80 H (1.7-7.0) K/uL Lymph # (Auto) 0.30 L (0.90-2.90) K/uL Stearns # (Auto) 0.50 (0.00-0.90) K/UL Eos # (Auto) 0.00 (0.00-0.50) K/uL Baso # (Auto) 0.00 (0.00-0.30) K/uL Abs Immat Gran (auto) 0.10 (0.00-0.30) K/uL Imm/Tot Granulo (auto) 0.5 % Diff Slide Review Acceptable Review (Acceptable) Sodium 127 L (135-149) mmol/L Potassium 4.1 (3.6-5.1) mmol/L Chloride 94 L (96-114) mmol/L Carbon Dioxide 19 L (20-32) mmol/L Anion Gap 14 (7-15) mEq/L BUN 49 H (5-24) mg/dL Creatinine 4.3 H (0.5-1.5) mg/dL Estimated Creat Clear 14.12 Estimated GFR 12 ml/min Glucose 93 (60-115) mg/dL Lactate 1.8 (0.5-1.9) mmol/L Calcium 8.0 L (8.4-10.6) mg/dL SARS-CoV-2 (PCR) Negative SARS-CoV-2 (Negative) Influenza Type A (PCR) Negative PCR FLU A (Negative) Influenza Type B (PCR) Negative PCR FLU B (Negative) RSV (PCR) Negative PCR RSV (Negative) Discharge Plan Discharge Clinical Impression: Pyelonephritis, Left renal stone Patient Disposition: [facility] Condition: Unchanged Prescriptions: No Action albuterol sulfate 90 mcg/actuation HFA aerosol inhaler 2 puff inhalation Q4-6H PRN (Reason: shortness of breath or wheezing) Qty: 6.7 1RF fluticasone propionate [Allergy Relief (fluticasone)] 50 mcg/actuation spray,suspension 1 spray intranasal QDAY PRN Rx Instructions: administer into each nostril. Seasonal use loratadine 10 mg tablet 10 mg PO DAILY PRN multivitamin [Daily Multi-Vitamin] Tablet 1 tab PO QDAY omega-3 fatty acids [Fish Oil] 1 cap PO .QD bupropion HCl 150 mg tablet extended release 24 hr 150 mg PO QAM Qty: 90 3RF escitalopram oxalate 20 mg tablet 20 mg PO DAILY Qty: 90 3RF peg 3350-electrolytes [Golytely] 236-22.74-6.74 -5.86 gram recon soln 240 ml PO Q10M Qty: 4000 0RF Rx Instructions: until fecal effluent is clear prednisone 20 mg tablet 40 mg PO QDAY Qty: 10 0RF dextroamphetamine-amphetamine 30 mg capsule,extended release 24hr 60 mg PO QAM Qty: 60 0RF dextroamphetamine-amphetamine 15 mg capsule,extended release 24hr 60 mg PO QAM Qty: 120 0RF Stand Alone Forms: [facility] Info Inst[facility]
[2025-11-05 19:51] LABS: PCR FLU A Negative PCR FLU A (Negative); PCR FLU B Negative PCR FLU B (Negative); PCR RSV Negative PCR RSV (Negative); SARS PCR* Negative SARS-CoV-2 (Negative)
[2025-11-05 20:07] LABS: Lactate* 1.8 mmol/L (0.5-1.9)
[2025-11-05 20:09] LABS: Hematocrit* 39.4 % (33.0-51.0); Hemoglobin* 14.0 gm/dL (12.0-16.0); Immature Granulocytes Pct Auto 0.5 %; Mean Corpuscular HGB Conc 36 gm/dL (32-36); Mean Corpuscular Hemoglobin 29 pg (26-34); Mean Corpuscular Volume 82 fL (80-100); RDW Coefficient of Variation % 12.8 % (11.5-15.5); Red Blood Count* 4.81 m/uL (4.00-5.20); White Blood Count* 16.68 K/uL (4.50-11.00)
[2025-11-05] MEDS: ONDANSETRON 2 MG/ML inj 4 MG IVP (20:11)
[2025-11-05 20:22] LABS: Immature Granulocytes Abs Auto 0.10 K/uL (0.00-0.30); Lymphocytes Absolute Auto 0.30 K/uL (0.90-2.90)
[2025-11-05 20:23] LABS: Slide Review Reflex Yes
[2025-11-05 20:25] LABS: Chloride* 94 mmol/L (96-114); Potassium* 4.1 mmol/L (3.6-5.1); Sodium* 127 mmol/L (135-149)
[2025-11-05 20:28] LABS: Blood Urea Nitrogen* 49 mg/dL (5-24); Creatinine* 4.3 mg/dL (0.5-1.5); Est. Creatinine Clearance* 14.12; Estimated Glomerular Filt Rate 12 ml/min
[2025-11-05 20:29] LABS: Anion Gap 14 mEq/L (7-15); Calcium* 8.0 mg/dL (8.4-10.6); Carbon Dioxide* 19 mmol/L (20-32); Glucose* 93 mg/dL (60-115)
[2025-11-05 20:52] LABS: Slide Review Acceptable Review (Acceptable)
[2025-11-05] MEDS: cefTRIAXone 1 GM in 0.9 % SODIUM CHLORIDE Mini-bag 100 ML IVPB (21:28)
--- NOTE | 2025-11-05 22:31 | ED.NURSE ---
Report given to Nadya at [facility]. EMS has been paged.
[2025-11-06 00:29] VITALS: BP 98/63; PULSE 89; RESP 20; TEMP 37.1; O2SAT 89
== END 2025-11-06 00:56 | disposition short-term general hospital (02) ==
PROVIDERS: Emergency Provider Emergency Medicine Emergency Medical Services; PCP Family Medicine
DX: N20.2 Calculus of kidney with calculus of ureter (principal)
CPT/HCPCS: 36415; 74177; 80048; 83605; 85025; 87040; 87631; 96361; 96365; 96375; 96376; 99284; 99285; J0696; J1171; J1885; J2405; J7030; Q9967

== ENCOUNTER 2025-11-06 00:39 | Outpatient (CLI) | payer OTHER, SELFPAY | END 2025-11-06 00:40 | disposition home or self-care (01) | LOC: AMB 11-19 11:35 | PROVIDERS: PCP Family Medicine; Visit Provider Family Medicine | DX: N20.0 Calculus of kidney (principal) | CPT/HCPCS: A0425; A0429 ==

== ENCOUNTER 2025-11-12 10:02 | Outpatient (CLI) | payer OTHER, SELFPAY | END 2025-11-12 10:03 | disposition home or self-care (01) | LOC: NFLDREF 10:05 | PROVIDERS: PCP Family Medicine; Visit Provider Family Medicine | DX: N12 Tubulo-interstitial nephritis, not specified as acute or chronic (principal); N20.0 Calculus of kidney; N17.9 Acute kidney failure, unspecified; E87.6 Hypokalemia | CPT/HCPCS: 80048 ==